=== PATIENT | male | born 1975 | race Caucasian/White ===

== ENCOUNTER 2018-01-05 18:37 | Emergency (ER) | payer SELFPAY ==
[2018-01-05 18:53] VITALS: BP 139/91
--- NOTE | 2018-01-05 18:58 | ER Report ---
History and Physical Time Seen By MD: 18:52 HPI/ROS CHIEF COMPLAINT: Sinus drainage, bilateral foot pain HISTORY OF PRESENT ILLNESS: 42-year-old homeless male presents ambulatory to the ER complaining of productive cough and green sinus drainage for nearly one week. Patient states he's been outside the last 2 nights. His feet up and wet in his boots. He notes he has some pain in his feet. Patient denies medical problems or significant past medical history. She denies alcohol or substance abuse. REVIEW OF SYSTEMS: Respiratory: As above Cardiovascular: No chest pain, no palpitations. Gastrointestinal: No vomiting, no abdominal pain. Musculoskeletal: As above Allergies: Coded Allergies: No Known Drug Allergies (Unverified , 01/05/18) Home Meds Active Scripts Ibuprofen (IBUPROFEN) 600 Mg Tablet, 1 TAB PO TID PRN for PAIN, #20 TAB Prov:KAYCEE FRANCO DO 01/05/18 Cephalexin 500 Mg Tab (KEFLEX 500 MG TAB) 500 Mg Tablet, 500 MG PO TID for infection, #20 TAB Prov:AKYCEE FRANCO DO 01/05/18 Reviewed Nurses Notes: Yes Old Medical Records Reviewed: Yes Constitutional Vital Sign - Last 24 Hours 01/05/18 18:53 Temp 97.9 Pulse 65 Resp 16 B/P (MAP) 139/91 Pulse Ox 96 O2 Delivery Room Air Physical Exam General Appearance: The patient is alert, has no immediate need for airway protection and no current signs of toxicity. On, HEENT: Pupils equal and round no injection. TMs normal, oropharynx with moderate erythema, no exudate, nasal passages are patent with gross erythema and edema Respiratory: Chest is non tender, lungs are clear to auscultation. No wheezing or rails Cardiac: regular rate and rhythm Gastrointestinal: Abdomen is soft and non tender, no masses, bowel sounds normal. Musculoskeletal: Neck: Neck is supple and non tender. Extremities have full range of motion and are non tender. Changes consistent with trench foot. There are no obvious spots of gangrene consistent with frostb ite. His gross erythema of numerous services. He was some whitening of calluses. There are a few open wounds consistent with the excoriations athlete's foot. All digits are neurovascularly intact Skin: No rashes or lesions. DIFFERENTIAL DIAGNOSIS: After history and physical exam differential diagnosis was considered for upper respiratory infection, sinusitis, viral syndrome, b ronchitis, pneumonia, COPD, frostbite, trench foot, inversion exposure, cellulitis, Tinea pedis Medical Decision Making ED Course/Re-evaluation ED Course Patient was admitted to an examination room. H&P was done. The differential diagnoses was considered. On clinical examination. Patient has upper respiratory infection consistent with sinusitis and bronchitis. His pulse ox is normal. His lungs are clear. He'll be treated with Keflex for infection. Patient's feet show signs of transferred an immersion injury from being in the cold and wet. No evidence of cellulitis or gangrene. Patient advised to soak his feet in warm water. And clean them daily. He is advised to keep extra pairs of socks to keep his feet dry. Patient was given a prescription for Motrin for pain relief Decision to Disposition Date: Jan 05, 2018 Decision to Disposition Time: 19:11 Depart Departure Latest Vital Signs Vital Signs Date Time Temp Pulse Resp B/P (MAP) Pulse Ox O2 Delivery O2 Flow Rate FiO2 01/05/18 18:53 97.9 65 16 139/91 96 Room Air Impression: Primary Impression: Upper respiratory infection Additional Impressions: Immersion (trench) foot Accident due to excessive cold, weather conditions Condition: Improved Disposition: HOME OR SELF-CARE New Scripts Ibuprofen (IBUPROFEN) 600 Mg Tablet 1 TAB PO TID PRN for PAIN, #20 TAB Prov: KAYCEE FRANCO DO 01/05/18 Cephalexin 500 Mg Tab (KEFLEX 500 MG TAB) 500 Mg Tablet 500 MG PO TID for infection, #20 TAB Prov: KAYCEE FRANCO DO 01/05/18 Patient Instructions: Upper Respiratory Infection (ED) Additional Instructions: Keep your feet clean and dry Perform daily soaks and gently cleanse her feet with a mild soap such as baby shampoo Problem Qualifiers Primary Impression: Upper respiratory infection URI type: unspecified URI Qualified Codes: J06.9 - Acute upper respiratory infection, unspecified Additional Impressions: Immersion (trench) foot Encounter type: initial encounter Laterality: unspecified laterality Qualified Codes: T69.029A - Immersion foot, unspecified foot, initial encounter KAYCEE FRANCO DO Jan 05, 2018 18:58
[2018-01-05] MEDS ORDERED: CEPH500T7 PO (19:14)
[2018-01-05] MEDS ORDERED: IBUP600T22 PO (19:14)
[2018-01-05] MEDS ORDERED: IBUPROFEN 600 MG TAB PO ONE (19:15)
[2018-01-05] MEDS ORDERED: IBUPROFEN 600 MG TAB TH PO ONE (19:15)
[2018-01-05] MEDS ORDERED: CEPHALEXIN MONO 500 MG CAP PO ONE (19:15)
[2018-01-05] MEDS ORDERED: CEPHALEXIN 500 MG CAP TH 2 CAP/BOTTLE PO ONE (19:15)
== END 2018-01-05 19:30 | disposition home or self-care (01) ==
LOC: ER 19:03
DX: J06.9 Acute upper respiratory infection, unspecified (principal); T69.029A Immersion foot, unspecified foot, initial encounter
CPT/HCPCS: 99283

== ENCOUNTER 2018-01-25 00:18 | Emergency (ER) | payer SELFPAY ==
[~2018-01-25 00:18] MED LIST: CEPH500T7 PO; IBUP600T22 PO
--- NOTE | 2018-01-25 00:29 | ER Report ---
History and Physical Time Seen By MD: 00:29 HPI/ROS CHIEF COMPLAINT: ear pain HISTORY OF PRESENT ILLNESS: This is a 42 year old male. He has been having bilateral ear pain and fevers for several days. Worsening pain, severe. Left ear worse than right. No drainage. No shortness of breath or sore throat. Allergies: Coded Allergies: No Known Drug Allergies (Unverified , 01/05/18) Home Meds Active Scripts Ketorolac Tromethamine (KETOROLAC TROMETHAMINE) 10 Mg Tab, 10 MG PO Q6H PRN for PAIN, #12 TAB 0 Refills Prov:MANUEL HAUSER MD 01/25/18 Amoxicillin (AMOXICILLIN) 500 Mg Capsule, 1 CAP PO Q8H, #21 CAPSULE 0 Refills Prov:MANUEL HAUSER MD 01/25/18 Discontinued Scripts Ibuprofen (IBUPROFEN) 600 Mg Tablet, 1 TAB PO TID PRN for PAIN, #20 TAB Prov:JOANKAYCEE Wilfredo YODER 01/05/18 Cephalexin 500 Mg Tab (KEFLEX 500 MG TAB) 500 Mg Tablet, 500 MG PO TID for infection, #20 TAB Prov:JAONKAYCEE Wilfredo YODER 01/05/18 Reviewed Nurses Notes: Yes Hx Substance Use Disorder: No Hx Alcohol Use: No Constitutional Vital Sign - Last 24 Hours 01/25/18 01/25/18 01/25/18 01/25/18 00:23 00:23 00:30 00:33 Temp 97.8 Pulse 104 90 Resp 16 B/P (MAP) 150/95 (113) 150/95 143/99 (114) Pulse Ox 95 95 O2 Delivery Room Air 01/25/18 00:48 Pulse 91 Pulse Ox 94 Physical Exam General Appearance: Alert, no acute distress. Eyes: Pupils equal and round no injection. ENT: Normal oral mucosa. Moist mucous membranes. Normal posterior oropharynx. Right TM bulging with some injection on upper part of TM and canal. Left TM bulging and red and swelling and redness in ear canal. Neck: Neck is supple and non tender. Respiratory: Chest is non tender, lungs are clear to auscultation. Cardiac: regular rate and rhythm Skin: No rashes or lesions. DIFFERENTIAL DIAGNOSIS: After history and physical exam differential diagnosis was considered for acute bilateral otitis media Medical Decision Making ED Course/Re-evaluation ED Course Gave Amoxicillin and Toradol. See instructions below. Decision to Disposition Date: Jan 25, 2018 Decision to Disposition Time: 00:39 Depart Departure Latest Vital Signs Vital Signs Date Time Temp Pulse Resp B/P (MAP) Pulse Ox O2 Delivery O2 Flow Rate FiO2 01/25/18 00:48 91 94 01/25/18 00:30 143/99 (114) 01/25/18 00:23 97.8 16 Room Air Impression: Primary Impression: Otitis media Condition: Improved Disposition: HOME OR SELF-CARE New Scripts Ketorolac Tromethamine (KETOROLAC TROMETHAMINE) 10 Mg Tab 10 MG PO Q6H PRN for PAIN, #12 TAB 0 Refills Prov: MANUEL HAUSER MD 01/25/18 Amoxicillin (AMOXICILLIN) 500 Mg Capsule 1 CAP PO Q8H, #21 CAPSULE 0 Refills Prov: MANUEL HAUSER MD 01/25/18 Patient Instructions: Otitis Media (ED) Additional Instructions: Take Amoxicillin 500mg three times a day. For Pain, you can use Toradol 10mg, one every 6 hours as needed for pain. Problem Qualifiers Primary Impression: Otitis media Otitis media type: suppurative Chronicity: acute Laterality: bilateral Recurrence: not specified as recurrent Spontaneous tympanic membrane rupture: without spontaneous rupture Qualified Codes: H66.003 - Acute sup purative otitis media without spontaneous rupture of ear drum, bilateral MANUEL HAUSER MD Jan 25, 2018 00:29
[2018-01-25 00:30] VITALS: BP 143/99
[2018-01-25] MEDS ORDERED: KETOROLAC TROM 10 MG TAB TH PO ONE (00:40)
[2018-01-25] MEDS ORDERED: AMOX/CLAV 500 MG TAB PO ONE (00:40)
[2018-01-25] MEDS ORDERED: AMOX-362 PO (00:42)
[2018-01-25] MEDS ORDERED: KET10 PO (00:42)
== END 2018-01-25 00:53 | disposition home or self-care (01) ==
LOC: ER 00:34
DX: H66.003 Acute suppurative otitis media without spontaneous rupture of ear drum, bilateral (principal)
CPT/HCPCS: 99283

== ENCOUNTER 2018-01-30 21:27 | Emergency (ER) | payer SELFPAY ==
[~2018-01-30 21:27] MED LIST changes: +AMOX-362 PO; +KET10 PO
--- NOTE | 2018-01-30 21:37 | ER Report ---
History and Physical Time Seen By MD: 21:37 HPI/ROS CHIEF COMPLAINT: Ear pain HISTORY OF PRESENT ILLNESS: 42-year-old male presents ambulatory to the ER complaining of bilateral ear pain. Patient was seen approximate 5 days ago and placed on amoxicillin for bilateral otitis media. Patient states she's been compliant on taking his medication and his pain medication. He's had no fevers. He notes no drainage from his ears. He however notes bilateral ear pressure and popping sensation. REVIEW OF SYSTEMS: Respiratory: No cough, no dyspnea. Cardiovascular: No chest pain, no palpitations. Gastrointestinal: No vomiting, no abdominal pain. Musculoskeletal: No back pain. Allergies: Coded Allergies: No Known Drug Allergies (Unverified , 01/30/18) Home Meds Active Scripts Ketorolac Tromethamine (KETOROLAC TROMETHAMINE) 10 Mg Tab, 10 MG PO Q6H PRN for PAIN, #12 TAB 0 Refills Prov:MANUEL HAUSER MD 01/25/18 Amoxicillin (AMOXICILLIN) 500 Mg Capsule, 1 CAP PO Q8H, #21 CAPSULE 0 Refills Prov:MANUEL HAUSER MD 01/25/18 Discontinued Scripts Ibuprofen (IBUPROFEN) 600 Mg Tablet, 1 TAB PO TID PRN for PAIN, #20 TAB Prov:KAYCEE FRANCO Wilfredo DO 01/05/18 Cephalexin 500 Mg Tab (KEFLEX 500 MG TAB) 500 Mg Tablet, 500 MG PO TID for infec tion, #20 TAB Prov:KAYCEE FRANCO DO 01/05/18 Reviewed Nurses Notes: Yes Old Medical Records Reviewed: Yes Hx Substance Use Disorder: No Hx Alcohol Use: No Constitutional Vital Sign - Last 24 Hours 01/30/18 01/30/18 21:36 21:58 Temp 98.1 Pulse 82 76 Resp 16 14 B/P (MAP) 134/92 123/85 (98) Pulse Ox 95 96 O2 Delivery Room Air Room Air Physical Exam General Appearance: The patient is alert, has no immediate need for airway protection and no current signs of toxicity. HEENT: Pupils equal and round no injection. TMs bilaterally with otosclerosis. The TMs are normal. Longer erythematous, as previously noted on the previous visit. Nasal passages are patent, the oropharynx is moderate erythema. He has no lymphadenopathy. Respiratory: Chest is non tender, lungs are clear to auscultation. Cardiac: regular rate and rhythm Musculoskeletal: Neck: Neck is supple and non tender. No lymphadenopathy Extremities have full range of motion and are non tender. Skin: No rashes or lesions. DIFFERENTIAL DIAGNOSIS: After history and physical exam differential diagnosis was considered for otitis media, eustachian tube dysfunction, TMJ disorder, otitis externa, TM rupture Medical Decision Making ED Course/Re-evaluation ED Course Patient was admitted to an examination room. H&P was done. The dental diagnoses was considered. On clinical examination. Patient has apparent healing of his TMs as compared to previous visit from 5 days ago when he was noted to have bilateral red tympanic membranes. There is no longer any erythema present. Patient's containing of pressure and popping sensation in his bilateral ears. He's advised Mucinex D twice a day.. He is given his 1st dose here. Patient advised to follow-up with primary care if unimproved in 3-5 days. Decision to Disposition Date: Jan 30, 2018 Decision to Disposition Time: 21:41 Depart Departure Latest Vital Signs Vital Signs Date Time Temp Pulse Resp B/P (MAP) Pulse Ox O2 Delivery O2 Flow Rate FiO2 01/30/18 21:58 76 14 123/85 (98) 96 Room Air 01/30/18 21:36 98.1 Impression: Primary Impression: Otitis media Additional Impression: Eustachian tube dysfunction Condition: Improved Disposition: HOME OR SELF-CARE Patient Instructions: Eustachian Tube Dysfunction (GEN), Otitis Media (ED) Additional Instructions: Continue your current antibiotic and pain medication Use Mucinex D twice daily to unplug your ears and eustachian tubes Follow-up with primary care if unimproved in 3-5 days Problem Qualifiers Primary Impression: Otitis media Otitis media type: suppurative Chronicity: acute Laterality: bilateral Recurrence: not specified as recurrent Spontaneous tympanic membrane rupture: without spontaneous rupture Qualified Codes: H66.003 - Acute suppurative otitis media without spontaneous rupture of ear drum, bilateral Additional Impression: Eustachian tube dysfunction Laterality: bilateral Qualified Codes: H69.83 - Other specified disorders of eustachian tube, bilateral KAYCEE FRANCO DO Jan 30, 2018 21:37
[2018-01-30] MEDS ORDERED: guaiFENesin/P-EPHED 1 EA TABCR PO ONE (21:40)
[2018-01-30 21:58] VITALS: BP 123/85
== END 2018-01-30 21:57 | disposition home or self-care (01) ==
LOC: ER 21:39
DX: H66.003 Acute suppurative otitis media without spontaneous rupture of ear drum, bilateral (principal); H69.83 Other specified disorders of Eustachian tube, bilateral
CPT/HCPCS: 99283

== ENCOUNTER 2018-02-15 02:08 | Emergency (ER) | payer SELFPAY ==
--- NOTE | 2018-02-15 02:21 | ER Report ---
History and Physical Time Seen By MD: 02:21 Hx. of Stated Complaint: PAIN IN FEET FROM WALKING. HPI/ROS CHIEF COMPLAINT: foot pain HISTORY OF PRESENT ILLNESS: This is a 42 year old male. He is homeless. He came in complaining of bilateral foot pain. This has been present for months now. He walks alot and feet get tired and painful. He does not have anyplace to live, so rarely takes his boots off. He has one pair of socks. He has noted some rashes at times as well which contributes to the pain. No injuries. He is out in the cold, but does not think he has had mcintyre-bite in the past. Allergies: Coded Allergies: No Known Drug Allergies (Unverified , 01/30/18) Home Meds Discontinued Scripts Ketorolac Tromethamine (KETOROLAC TROMETHAMINE) 10 Mg Tab, 10 MG PO Q6H PRN for PAIN, #12 TAB 0 Refills Prov:MANUEL HAUSER MD 01/25/18 Amoxicillin (AMOXICILLIN) 500 Mg Capsule, 1 CAP PO Q8H, #21 CAPSULE 0 Refills Prov:MANUEL HAUSER MD 01/25/18 Reviewed Nurses Notes: Yes Hx Substance Use Disorder: No Hx Alcohol Use: No Constitutional Vital Sign - Last 24 Hours 02/15/18 02/15/18 02:14 03:34 Temp 97.9 Pulse 73 69 Resp 16 B/P (MAP) 154/125 158/96 (116) Pulse Ox 96 97 O2 Delivery Room Air Room Air Physical Exam General: Alert, disheveled. Skin: He feet are very dirty. He has areas of callus, mainly toes and ball of foot bilaterally. Has areas of maceration. Also evidence of tinea pedis. A few abrasions. No areas of redness or cellulitis. Nails are untrimmed. Medical Decision Making ED Course/Re-evaluation ED Course The patient was able to soak his feet, wash then, and then applied some Clotrimazole cream. Ibuprofen 800mg given to help with pain. Decision to Disposition Date: Feb 15, 2018 Decision to Disposition Time: 02:31 Depart Departure Latest Vital Signs Vital Signs Date Time Temp Pulse Resp B/P (MAP) Pulse Ox O2 Delivery O2 Flow Rate FiO2 02/15/18 03:34 69 158/96 (116) 97 Room Air 02/15/18 02:14 97.9 16 Impression: Primary Impression: Tinea pedis Condition: Improved Disposition: HOME OR SELF-CARE Patient Instructions: Tinea Corporis (ED) Additional Instructions: The foot pain you have is from multiple factors. 1. You need to take your shoes and socks off once or twice a day to give them a chance to air out. The skin is too moist. 2. Washing you feet with soap and water once or twice a day until they are feeling better. 3. Using an antifungal cream after washing them. We have provided a tube of Clotrimazole cream. This is available over the counter as well at any pharmacy. Also recommend getting a set of nail clippers to trim the nails. As far as foot pain from walking, resting the feet or using Tylenol or Ibuprofen can help. Getting in from the cold will help as well. Problem Qualifiers Primary Impression: Tinea pedis Laterality: bilateral Qualified Codes: B35.3 - Tinea pedis MANUEL HAUSER MD Feb 15, 2018 02:21
[2018-02-15] MEDS ORDERED: CLOTRIMAZOLE 1% CR 30 GM TUBE TP ONE (02:30)
[2018-02-15] MEDS ORDERED: IBUPROFEN 800 MG TAB PO ONE (02:45)
[2018-02-15 03:34] VITALS: BP 158/96
== END 2018-02-15 03:49 | disposition home or self-care (01) ==
LOC: ER 02:18
DX: B35.3 Tinea pedis (principal)
CPT/HCPCS: 99283

== ENCOUNTER 2018-02-23 01:09 | Emergency (ER) | payer SELFPAY ==
[2018-02-23 01:13] VITALS: BP 145/99
--- NOTE | 2018-02-23 01:15 | ER Report ---
History and Physical Time Seen By MD: 01:15 HPI/ROS CHIEF COMPLAINT: Right ear pain HISTORY OF PRESENT ILLNESS: 42-year-old homeless male with? Mental health disorder presents to the ER complaining of right ear pain for 3 days. Patient notes no fever or chills. Patient notes no drainage from his ear. He's had no sore throat. He is poorly. He is wearing many layers of clothes since he had lives outside. Patient has a mouth full of tobacco to chew. He is drooling over his lip into his [place]. REVIEW OF SYSTEMS: Respiratory: No cough, no dyspnea. Cardiovascular: No chest pain, no palpitations. Gastrointestinal: No vomiting, no abdominal pain. Musculoskeletal: No back pain. Allergies: Coded Allergies: No Known Drug Allergies (Unverified , 02/23/18) Home Meds Active Scripts Azithromycin 250 Mg Tab (AZITHROMYCIN 250 MG TAB) 250 Mg Tablet, 0 PO QDAY, #6 TAB TAKE 2 TABLETS ON DAY 1 AND 1 TABLET ON DAYS 2-5 Prov:KAYCEE FRANCO DO 02/23/18 Reviewed Nurses Notes: Yes Old Medical Records Reviewed: Yes Hx Substance Use Disorder: No Hx Alcohol Use: No Constitutional Vital Sign - Last 24 Hours 02/23/18 01:13 Temp 97.8 Pulse 86 Resp 14 B/P (MAP) 145/99 Pulse Ox 96 O2 Delivery Room Air Physical Exam General Appearance: The patient is alert, has no immediate need for airway protection and no current signs of toxicity. Vital signs stable, afebrile, pulse ox normal, poorly HEENT: Pupils equal and round no injection. Right tympanic membranes is mildly erythematous and bulging. There is no perforation. There is sclerosis consistent with previous infections. Pharynx with mild erythema Respiratory: Chest is non tender, lungs are clear to auscultation. No wheezing or rails Cardiac: regular rate and rhythm Gastrointestinal: Abdomen is soft and non tender, no masses, bowel sounds normal. Musculoskeletal: Neck: Neck is supple and non tender. No lymphadenopathy Extremities have full range of motion and are non tender. Skin: No rashes or lesions. DIFFERENTIAL DIAGNOSIS: After history and physical exam differential diagnosis was considered for otitis media, otitis externa, eustachian tube dysfunction, dental abscess, dental pain, TMJ disorder Medical Decision Making ED Course/Re-evaluation ED Course Patient admitted to an examination room. H&P is done. The differential diagnoses was considered. On clinical examination. Patient has a mildly erythematous right tympanic membrane. There is no perforation. There is no drainage in the canal. Patient be treated with Zithromax. He is given a prescription for Zithromax. He is advised ibuprofen 200 mg 3 tablets 3 times a day for pain relief. Agents given information to follow up with the [facility]. Decision to Disposition Date: Feb 23, 2018 Decision to Disposition Time: 01:37 Depart Departure Latest Vital Signs Vital Signs Date Time Temp Pulse Resp B/P (MAP) Pulse Ox O2 Delivery O2 Flow Rate FiO2 02/23/18 01:13 97.8 86 14 145/99 96 Room Air Impression: Primary Impression: Otitis media Condition: Improved Disposition: HOME OR SELF-CARE New Scripts Azithromycin 250 Mg Tab (AZITHROMYCIN 250 MG TAB) 250 Mg Tablet 0 PO QDAY, #6 TAB TAKE 2 TABLETS ON DAY 1 AND 1 TABLET ON DAYS 2-5 Prov: KAYCEE FRANCO DO 02/23/18 Patient Instructions: Otitis Media (ED) Additional Instructions: Take ibuprofen 200 mg 3 tablets 3 times a day with food for 3-5 days as needed for pain relief Follow-up with [facility] [phone], address [address] [place] [address] Problem Qualifiers Primary Impression: Otitis media Otitis media type: suppurative Chronicity: acute Laterality: right Recurrence: recurrent Spontaneous tympanic membrane rupture: without spontaneous rupture Qualified Codes: H66.004 - Acute suppurative otitis media without spontaneous rupture of ear drum, recurrent, right ear KAYCEE FRANCO DO Feb 23, 2018 01:15
[2018-02-23] MEDS ORDERED: AZITHROMYCIN 250 MG TAB PO ONE (01:35)
[2018-02-23] MEDS ORDERED: IBUPROFEN 600 MG TAB TH PO ONE (01:35)
[2018-02-23] MEDS ORDERED: AZIT-18 PO (01:40)
== END 2018-02-23 01:50 | disposition home or self-care (01) ==
LOC: ER 01:21
DX: H66.004 Acute suppurative otitis media without spontaneous rupture of ear drum, recurrent, right ear (principal)
CPT/HCPCS: 99283; Q0144

== ENCOUNTER 2018-03-08 00:40 | Emergency (ER) | payer SELFPAY ==
[~2018-03-08 00:40] MED LIST changes: +AZIT-18 PO
--- NOTE | 2018-03-08 00:45 | ER Report ---
History and Physical Time Seen By MD: 00:44 HPI/ROS CHIEF COMPLAINT: Bilateral foot pain HISTORY OF PRESENT ILLNESS: 42-year-old homeless male presents to the ER complaining of bilateral pain. It's clinic usually cold the last few nights. Patient presents with purple appearing feet. He is suffering mild frostbite. Patient's been seen previously with trench foot. Allergies: Coded Allergies: No Known Drug Allergies (Unverified , 02/23/18) Home Meds Active Scripts Cephalexin Monohydrate (CEPHALEXIN) 500 Mg Cap, 500 MG PO TID for infection, #30 CAP TAKE 1 CAPSULE BY MOUTH EVERY SIX HOURS Prov:KAYCEE FRANCO DO 03/08/18 Discontinued Scripts Azithromycin 250 Mg Tab (AZITHROMYCIN 250 MG TAB) 250 Mg Tablet, 0 PO QDAY, #6 TAB TAKE 2 TABLETS ON DAY 1 AND 1 TABLET ON DAYS 2-5 Prov:KAYCEE FRANCO DO 02/23/18 Past Medical/Surgical History Homeless Hx Substance Use Disorder: No Hx Alcohol Use: No Constitutional Vital Sign - Last 24 Hours 03/08/18 03/08/18 03/08/18 03/08/18 00:47 00:55 01:00 01:05 Temp 98.0 Pulse 83 75 ??? Resp 16 B/P (MAP) 155/105 156/100 (118) Pulse Ox 95 95 94 O2 Delivery Room Air 03/08/18 01:20 Pulse ??? Pulse Ox 95 Physical Exam General appearance: Alert no distress. Respiratory: Chest is non tender, lungs are clear to auscultation. Cardiac: Regular rate and rhythm Extremities: Examination of the feet bilaterally show purplish appearing feet bilaterally with some skin breakdown. Patient looks to have the aftermath of frostbite. Her neurovascularly intact. There is some skin breakdown. DIFFERENTIAL DIAGNOSIS: After history and physical exam differential diagnosis was considered for frostbite, transferred, emergent injury, recurring frostbite Medical Decision Making ED Course/Re-evaluation ED Course Patient was admitted to an examination room. H&P was done. His feet bilaterally show purplish tint. They're neurovascularly intact. There is some skin breakdown in a few areas where patient has sustained frostbite. Patient remains homeless. Patient be covered with Keflex to prevent any secondary bacterial infection. Patient's advised ibuprofen and warm soaks to help as they heal. Decision to Disposition Date: Mar 08, 2018 Decision to Disposition Time: 01:00 Depart Departure Latest Vital Signs Vital Signs Date Time Temp Pulse Resp B/P (MAP) Pulse Ox O2 Delivery O2 Flow Rate FiO2 03/08/18 01:20 ??? 95 03/08/18 01:00 156/100 (118) 03/08/18 00:47 98.0 16 Room Air Impression: Primary Impression: Immersion (trench) foot Condition: Improved Disposition: HOME OR SELF-CARE New Scripts Cephalexin Monohydrate (CEPHALEXIN) 500 Mg Cap 500 MG PO TID for infection, #30 CAP TAKE 1 CAPSULE BY MOUTH EVERY SIX HOURS Prov: KAYCEE FRANCO DO 03/08/18 Patient Instructions: Frostbite (ED) Additional Instructions: Follow-up with the [facility] was Problem Qualifiers Primary Impression: Immersion (trench) foot Encounter type: initial encounter Laterality: unspecified laterality Qualified Codes: T69.029A - Immersion foot, unspecified foot, initial encounter KAYCEE FRANCO DO Mar 08, 2018 00:45
[2018-03-08 01:00] VITALS: BP 156/100
[2018-03-08] MEDS ORDERED: CEPH500C24 PO (01:13)
[2018-03-08] MEDS ORDERED: CEPHALEXIN MONO 500 MG CAP PO ONE (01:15)
== END 2018-03-08 01:23 | disposition home or self-care (01) ==
LOC: ER 01:02
DX: T69.022A Immersion foot, left foot, initial encounter (principal); T69.021A Immersion foot, right foot, initial encounter
CPT/HCPCS: 99283

== ENCOUNTER 2018-04-04 04:09 | Emergency (ER) | payer MEDICARE ==
[~2018-04-04 04:09] MED LIST changes: +CEPH500C24 PO
[2018-04-04 04:14] VITALS: BP 149/96
--- NOTE | 2018-04-04 04:23 | ER Report ---
History and Physical Time Seen By MD: 04:21 Hx. of Stated Complaint: PT COMPLAINT OF FLU/STOMACH BUG, DIARRHEA, RIGHT EARACHE, AND HEART BURN. HPI/ROS CHIEF COMPLAINT: earache, nausea,diarrhea HISTORY OF PRESENT ILLNESS: This is a 42 year old male. He is homeless. He has been having diarrhea and nausea with vomiting for over a week now. Not sure exactly how long. He has had water from questionable sources. Also with a mild cough and a right ear infection. No fevers noted. No problems with urination. No blood in the stools. No known sick contacts. Allergies: Coded Allergies: No Known Drug Allergies (Unverified , 04/04/18) Home Meds Active Scripts Amoxicillin (AMOXICILLIN) 500 Mg Capsule, 1 CAP PO TID, #30 CAPSULE 0 Refills Prov:MANUEL HAUSER MD 04/04/18 Metronidazole (METRONIDAZOLE) 500 Mg Tablet, 500 MG PO TID, #30 TAB 0 Refills Prov:MANUEL HAUSER MD 04/04/18 Cephalexin Monohydrate (CEPHALEXIN) 500 Mg Cap, 500 MG PO TID for infection, #30 CAP TAKE 1 CAPSULE BY MOUTH EVERY SIX HOURS Prov:KAYCEE FRANCO DO 03/08/18 Reviewed Nurses Notes: Yes Hx Substance Use Disorder: No Hx Alcohol Use: No Constitutional Vital Sign - Last 24 Hours 04/04/18 04/04/18 04/04/18 04/04/18 04:13 04:14 04:19 04:24 Temp 99.0 Pulse 65 72 79 Resp 16 B/P (MAP) 149/96 149/96 (113) Pulse Ox 93 92 93 O2 Delivery Room Air 04/04/18 04/04/18 04/04/18 04/04/18 04:29 04:34 04:39 04:44 Pulse 64 71 70 73 Pulse Ox 93 92 94 93 Physical Exam General Appearance: The patient is alert. No acute distress. Eyes: Pupils are equal, round. No pallor, injection or icterus. ENT: Mucous membranes are moist. Normal oral mucosa. Posterior oropharynx is normal. Right TM is red and bulging. Normal left. Neck: Supple and non tender. Respiratory: Lungs are clear to auscultation. Cardiovascular: Regular rate and rhythm. No murmurs, gallops or rubs. Normal cap illary refill. Gastrointestinal: Abdomen is soft, discomfort, but no tenderness. Nondistended. Normal active bowel sounds. Neurological: Alert and oriented x3. No focal neurologic deficits Skin: Warm and dry. DIFFERENTIAL DIAGNOSIS: After history and physical exam, differential diagnosis was considered for patient with acute otitis media. Also with ongoing problems with nausea/vomiting as well as diarrhea, seems more subacute and he does have questionable exposure to possible parasitic source such as Giardia Medical Decision Making ED Course/Re-evaluation ED Course Patient was unable to provide a stool sample. We will get him amoxicillin for his ear infection. Decided to go ahead and just treat empirically with metronidazole for possible Giardia. If he is able to give us a sample I encouraged him to do so so we can tell for sure if this might be Giardia. Decision to Disposition Date: Apr 04, 2018 Decision to Disposition Time: 04:30 Depart Departure Latest Vital Signs Vital Signs Date Time Temp Pulse Resp B/P (MAP) Pulse Ox O2 Delivery O2 Flow Rate FiO2 04/04/18 04:44 73 93 04/04/18 04:14 149/96 (113) 04/04/18 04:13 99.0 16 Room Air Impression: Primary Impression: Otitis media Additional Impression: Diarrhea, unspecified Condition: Stable Disposition: HOME OR SELF-CARE New Scripts Amoxicillin (AMOXICILLIN) 500 Mg Capsule 1 CAP PO TID, #30 CAPSULE 0 Refills Prov: MANUEL HAUSER MD 04/04/18 Metronidazole (METRONIDAZOLE) 500 Mg Tablet 500 MG PO TID, #30 TAB 0 Refills Prov: MANUEL HAUSER MD 04/04/18 Patient Instructions: Acute Diarrhea (ED), Otitis Media (ED) Additional Instructions: The ear infection should improve with the antibiotic Amoxicillin 500mg three times a day for 10 days. The diarrhea sounds like it has been going on long enough that we would worry about causes other than a viral infection. Specifically, with your risk factors we would worry about a parasite called Giardia. We would like to try an get a stool sample if possible to test for this. If not possible, then treating with an antibiotic called Metronidazole 500mg three times a day for 10 days would be an option. Problem Qualifiers Primary Impression: Otitis media Otitis media type: suppurative Chronicity: acute Laterality: right Recurrence: recurrent Spontaneous tympanic membrane rupture: without spontaneous rupture Qualified Codes: H66.004 - Acute suppurative otitis media without spontaneous rupture of ear drum, recurrent, right ear Additional Impression: Diarrhea, unspecified Diarrhea type: presumed infectious Qualified Codes: R19.7 - Diarrhea, unspecified MANUEL HAUSER MD Apr 04, 2018 04:23
[2018-04-04] MEDS ORDERED: METRONIDAZOLE 500 MG TABLET PO ONE (04:30)
[2018-04-04] MEDS ORDERED: AMOXICILLIN 500 MG CAP PO ONE (04:30)
[2018-04-04] MEDS ORDERED: AMOX-362 PO (04:33)
[2018-04-04] MEDS ORDERED: METR500T15 PO (04:33)
== END 2018-04-04 04:48 | disposition home or self-care (01) ==
LOC: ER 04:23
DX: H66.004 Acute suppurative otitis media without spontaneous rupture of ear drum, recurrent, right ear (principal); R19.7 Diarrhea, unspecified
CPT/HCPCS: 99283; A9270

== ENCOUNTER 2018-07-13 22:25 | Emergency (ER) | payer SELFPAY ==
[~2018-07-13 22:25] MED LIST changes: +METR500T15 PO
[2018-07-13 22:28] VITALS: BP 150/87
--- NOTE | 2018-07-13 22:34 | ER Report ---
History and Physical Time Seen By MD: 22:34 Hx. of Stated Complaint: PATIENT STATES HAVING A LOT OF PAIN IN HIS FEET, ESPECIALLY BOTH GREAT TOES. HPI/ROS CHIEF COMPLAINT: Pain in his feet HISTORY OF PRESENT ILLNESS: This is a 43-year-old male. He's having bilateral foot pain. Specifically pain in both big toes. This is present when he has his shoes on. When he takes that she is off the pain seems to improve.. He is wearing a pair of shoes that is one size too small. He is homeless and does not have access. Also continues to have extremely poor foot and personal hygiene. He does have a history of trench foot and tinea pedis that we've treated him for in the past. Allergies: Coded Allergies: No Known Drug Allergies (Unverified , 07/13/18) Home Meds Discontinued Scripts Amoxicillin (AMOXICILLIN) 500 Mg Capsule, 1 CAP PO TID, #30 CAPSULE 0 Refills Prov:MANUEL HAUSER MD 04/04/18 Metronidazole (METRONIDAZOLE) 500 Mg Tablet, 500 MG PO TID, #30 TAB 0 Refills Prov:MANUEL HAUSER MD 04/04/18 Cephalexin Monohydrate (CEPHALEXIN) 500 Mg Cap, 500 MG PO TID for infection, #30 CAP TAKE 1 CAPSULE BY MOUTH EVERY SIX HOURS Prov:KAYCEE FRANCO DO 03/08/18 Reviewed Nurses Notes: Yes Hx Substance Use Disorder: No Hx Alcohol Use: No Constitutional Vital Sign - Last 24 Hours 07/13/18 22:28 Temp 97.7 Pulse 62 Resp 16 B/P (MAP) 150/87 Pulse Ox 94 O2 Delivery Room Air Physical Exam Gen.: Alert, no acute distress. Musculoskeletal: He has normal motor function of the feet and toes. Skin: He has nail fungus. The left toenail is trimmed normally without any problems. The right toenail is a little longer than it should be with some redness around the nail margins. The toes themselves have callus buildup on the tip of the toe and on the bottoms. He does have significant coronary information on his feet as well. I don't see any evidence of skin breakdown. There is evidence of tinea pedis present. Neuro: Normal sensation Cardio: Normal cap refill Medical Decision Making ED Course/Re-evaluation ED Course Discussed with the patient regarding foot hygiene again. We will treat for the tinea pedis but this will not get better without the improved hygiene and discussed this with him. Also discussed with the pain in his toes seems like it's due to the shoes being too small and recommended getting a different footwear. In the meantime will offload the pressure on his toes by giving him to postop shoes here in the ER. Decision to Disposition Date: Jul 13, 2018 Decision to Disposition Time: 22:52 Depart Departure Latest Vital Signs Vital Signs Date Time Temp Pulse Resp B/P (MAP) Pulse Ox O2 Delivery O2 Flow Rate FiO2 07/13/18 22:28 97.7 62 16 150/87 94 Room Air Impression: Primary Impression: Tinea pedis Additional Impression: Toe pain, bilateral Condition: Improved Disposition: HOME OR SELF-CARE Patient Instructions: Athlete's Foot (ED) Additional Instructions: The pain in your toes appears to be due to your shoes being too small. We are providing two post-op shoes to unload the pressure on your feet while you work on getting other shoes that will not put pressure on your toes. Also a tube of Clotramiazole cream for athletes foot (tinea pedis). Wash your feet with soap and water, dry them and then apply the cream twice a day. Problem Qualifiers Primary Impression: Tinea pedis Laterality: bilateral Qualified Codes: B35.3 - Tinea pedis MANUEL HAUSER MD Jul 13, 2018 22:34
[2018-07-13] MEDS ORDERED: CLOTRIMAZOLE 1% CR 30 GM TUBE TP ONE (22:40)
== END 2018-07-13 23:04 | disposition home or self-care (01) ==
LOC: ER 22:30
DX: B35.3 Tinea pedis (principal); M79.675 Pain in left toe(s); M79.674 Pain in right toe(s)
CPT/HCPCS: 99282; L3260

== ENCOUNTER 2018-08-12 19:52 | Emergency (ER) | payer SELFPAY ==
[2018-08-12 20:18] VITALS: BP 155/107
--- NOTE | 2018-08-12 21:21 | ER Report ---
History and Physical Time Seen By MD: 20:51 Hx. of Stated Complaint: PT COMPLAINT OF BILATERAL TOE PAIN FROM WEARING SHOES THAT ARE TOO SMALL. HPI/ROS CHIEF COMPLAINT: foot pain HISTORY OF PRESENT ILLNESS: This is a 43 year old male. Homeless. Has been here in past for foot pain. Same symptoms at this time. Mainly in the toes and forefoot. Used the clotrimazole cream given last time. Still not doing good foot care. Still with shoes that are a size too small. Allergies: Coded Allergies: No Known Drug Allergies (Unverified , 08/12/18) Home Meds No Active Prescriptions or Reported Meds Reviewed Nurses Notes: Yes Hx Substance Use Disorder: No Hx Alcohol Use: No Constitutional Vital Sign - Last 24 Hours 08/12/18 20:18 Temp 98.0 Pulse 71 Resp 16 B/P (MAP) 155/107 Pulse Ox 93 O2 Delivery Room Air Physical Exam General: Alert, no acute distress. Poor hygene, due to homeless situation. Skin: Has some sores on front a bottom of toes, look to be rubbing on shoes. Some evidence of tinea, but difficult to tell as feet are very dirty. Musculoskeletal: Normal movement. Neuro: Normal sensation. Cardiovascular: Normal cap refill and pulses. Medical Decision Making ED Course/Re-evaluation ED Course soaked and washed feet. Appears to be friction/rubbing areas on toes, again most likely due to shoes too small. Still with some tinea, but improved from last visit. Discussed hygene again and provided clotrimazole. Again talked about smaller shoed causing alot of his problems. Decision to Disposition Date: August 12, 2018 Decision to Disposition Time: 21:34 Depart Departure Latest Vital Signs Vital Signs Date Time Temp Pulse Resp B/P (MAP) Pulse Ox O2 Delivery O2 Flow Rate FiO2 08/12/18 20:18 98.0 71 16 155/107 93 Room Air Impression: Primary Impression: Tinea pedis Additional Impression: Foot pain, bilateral Condition: Improved Disposition: HOME OR SELF-CARE New Scripts No Active Prescriptions or Reported Meds Patient Instructions: Athlete's Foot (ED) Additional Instructions: take of your shoes and socks and wash your feet twice a day. Using some epsom salt soaks can help. Once clean, apply Clotrimazole cream, then clean socks. The foot pain will not improve unless you get some new shoes that fit, so keep working on this. Problem Qualifiers Primary Impression: Tinea pedis Laterality: bilateral Qualified Codes: B35.3 - Tinea pedis MANUEL HAUSER MD August 12, 2018 21:21
[2018-08-12] MEDS ORDERED: CLOTRIMAZOLE 1% CR 30 GM TUBE TP ONE (21:35)
== END 2018-08-12 22:00 | disposition home or self-care (01) ==
LOC: ER 20:18
DX: B35.3 Tinea pedis (principal); M79.675 Pain in left toe(s); M79.674 Pain in right toe(s)
CPT/HCPCS: 99282

== ENCOUNTER 2018-08-29 15:56 | Emergency (ER) | payer SELFPAY ==
--- NOTE | 2018-08-29 16:03 | ER Report ---
History and Physical Time Seen By MD: 16:03 HPI/ROS Called paramedics complaining of b/l foot pain. Known homeless. Stays in the nursing home each night. Denies drugs/alcohol. No trauma. No fever/chills. No known DM. Remainder of the 14 system rev: Yes Allergies: Coded Allergies: No Known Drug Allergies (Unverified , 08/29/18) Home Meds No Active Prescriptions or Reported Meds Reviewed Nurses Notes: Yes Old Medical Records Reviewed: Yes Hx Substance Use Disorder: No Hx Alcohol Use: No Constitutional Vital Sign - Last 24 Hours 08/29/18 16:03 Temp 97.3 Pulse 69 Resp 14 B/P (MAP) 154/111 Pulse Ox 95 O2 Delivery Room Air Physical Exam General Appearance: The patient is alert, has no immediate need for airway protection and no current signs of toxicity. Respiratory: Chest is non tender, lungs are clear to auscultation. Cardiac: regular rate and rhythm Extremities have full range of motion and are non tender. Skin: Cracking, dirty, peeling, erythematous skin on multiple toes. Pulses symmetric. Medical Decision Making ED Course/Re-evaluation ED Course Trench foot. Treated and dried in the ED. Will be given new, dry clothes. Will d/c to the homeless nursing home. Counseled to keep feet and toes dry Decision to Disposition Date: Aug 29, 2018 Decision to Disposition Time: 17:38 Depart Departure Latest Vital Signs Vital Signs Date Time Temp Pulse Resp B/P (MAP) Pulse Ox O2 Delivery O2 Flow Rate FiO2 08/29/18 16:03 97.3 69 14 154/111 95 Room Air Impression: Primary Impression: Immersion (trench) foot Condition: Improved Disposition: HOME OR SELF-CARE New Scripts No Active Prescriptions or Reported Meds Additional Instructions: Keep your socks, feet and shoes clean and dry. [facility] this [facility] or next week. Problem Qualifiers Primary Impression: Immersion (trench) foot Encounter type: initial encounter Laterality: unspecified laterality Qualified Codes: T69.029A - Immersion foot, unspecified foot, initial encounter CE FREIRE MD Aug 29, 2018 16:03
[2018-08-29] MEDS ORDERED: LIDOCAINE 2% JELLY 30 ML TUBE TP ONE (18:00)
[2018-08-29] MEDS ORDERED: LIDOCAINE 2% JELLY 5 ML TUBE TP ONE (18:10)
[2018-08-29 18:30] VITALS: BP 142/93
== END 2018-08-29 19:38 | disposition home or self-care (01) ==
LOC: ER 16:17
DX: T69.029A Immersion foot, unspecified foot, initial encounter (principal)
CPT/HCPCS: 99282

== ENCOUNTER → 2018-08-29 | Outpatient (CLI) | payer SELFPAY | LOC: AMB 15:45 | PROVIDERS: ATTEND Nurse Practitioner | DX: M79.672 Pain in left foot (principal); M79.671 Pain in right foot; M25.572 Pain in left ankle and joints of left foot; M25.571 Pain in right ankle and joints of right foot | CPT/HCPCS: A0425; A0429 ==